=== PATIENT | female | born 2000 | race Caucasian/White ===

== ENCOUNTER 2023-05-07 06:15 | Inpatient (IN) ==
[2023-05-07] MEDS ORDERED: OXYTOCIN 30 UNITS/NSS 30 UNITS/500 ML BAG IV PRN (08:08)
[2023-05-07] MEDS ORDERED: LIDOCAINE 1% LOCAL 20 ML VIAL INFIL PRN (08:08)
[2023-05-07 08:50] LABS: Hematocrit (blood only) 34.4 % (37.0-47.0); Hemoglobin 11.3 g/dl (12.0-16.0); Mean Corpuscular Hemoglobin 27.2 pg (25.0-34.0); Mean Corpuscular Hgb Conc 32.8 g/dL (32.0-36.0); Mean Corpuscular Volume 82.7 fL (80.0-100.0); Mean Platelet Volume 12.2 fL (9.4-12.4); Platelet Count 180 K/uL (130-400); RDW Coefficient of Variation 12.9 % (11.5-14.5); Red Blood Count 4.16 M/uL (4.20-5.40); White Blood Count 11.58 K/ul (4.8-10.8)
[2023-05-07] MEDS ORDERED: fentANYL 2 MCG/ML BUPIVacaine 0.125%-NSS 100ML BAG ONE (09:08)
[2023-05-07] MEDS ORDERED: BUPIVACAINE 0.25% PF 30 ML VIAL ONE (09:08)
[2023-05-07] MEDS ORDERED: ePHEDrine sulfate 50 MG/ML AMP ONE (09:08)
[2023-05-07] MEDS ORDERED: fentaNYL citrate PF 100 MCG/2 ML VIAL ONE (09:08)
[2023-05-07] MEDS ORDERED: LIDOCAINE 2%/EPINEPHRINE 1:200,000 20 ML PF ONE (09:08)
[2023-05-07] MEDS ORDERED: SODIUM CHLORIDE 0.9% PF INJ 10 ML VIAL ONE (09:08)
[2023-05-07] MEDS: LACTATED RINGER'S 1,000 ML IV PRN ×2 (09:10→12:25)
--- NOTE | 2023-05-07 09:16 | Anesthesiology Consultation ---
Date of Service May 07, 2023 Assessment & Plan (1) Encounter for pre-operative examination: Chart Review Chart Review: Acceptable Risk for Labor Epidural History Height/Weight Height: 5 ft 3 in Weight: 68.946 kg Allergies Allergy/AdvReac Type Severity Reaction Status Date / Time No Known Allergies Allergy Verified 05/02/23 13:46 Medications Home Medications Medication Instructions Recorded Confirmed Last Taken prenat.vits,rory,[id number]-[id number]-[id number] tab PO 12/09/22 05/02/23 Unknown ondansetron HCl 4 mg tablet 4 mg PO Q8H PRN nausea and 12/28/22 05/02/23 Unknown vomiting #20 tabs RSV vac, preF A and preF B(PF) 120 0.5 ml IM ONCE #1 ea 04/17/23 05/02/23 Unknown mcg/0.5 mL IM solution (Abrysvo) Active Medications Generic Name Dose Route Start Last Admin Trade Name Freq PRN Reason Stop Dose Admin Lactated Ringer's 1,000 mls @ 125 mls/hr 05/07/23 08:08 05/07/23 09:10 Lr IV 05/09/23 08:07 999 mls/hr .Q8H PRN Administration L&D Protocol Protocol Past Medical History Medical History (Updated 05/07/23 @ 09:17 by Willie Kitchen MD) No pertinent past medical history Past Family History Family History Grandmother (Maternal) Breast cancer Grandfather (Paternal) Hypertension Myocardial infarction Father Emphysema/COPD Denies family history of Ovarian cancer Colorectal cancer Past Surgical History Surgical History S/P tonsillectomy and adenoidectomy S/P wisdom tooth extraction Social History Smoking Status: Never smoker Do You Dip or Chew Tobacco: No Hx Alcohol Use: No Hx Substance Use: No Physical Exam Vital Signs Last Vital Signs Temp 36.5 C 05/07/23 06:47 Pulse 77 05/07/23 06:26 Resp 18 05/07/23 06:47 BP 119/69 05/07/23 06:26 Testing Laboratory Results 05/07/23 08:21
[2023-05-07] MEDS ORDERED: ONDANSETRON INJ 2 MG/ML 2 ML VIAL IV PRN (09:52)
[2023-05-07] MEDS ORDERED: SODIUM CHLORIDE 0.9% PF INJ 10 ML VIAL EPI STA (09:52)
[2023-05-07] MEDS ORDERED: NALOXONE HCL 0.4 MG/1 ML VIAL/CARP IV PRN (09:52)
[2023-05-07] MEDS ORDERED: fentaNYL citrate PF 100 MCG/2 ML VIAL EPI STA (09:52)
[2023-05-07] MEDS ORDERED: LIDOCAINE 2% MPF LOCAL 5 ML VIAL EPI PRN (09:52)
[2023-05-07] MEDS ORDERED: BUPIVACAINE 0.25% PF 30 ML VIAL EPI STA (09:52)
[2023-05-07] MEDS ORDERED: NALOXONE HCL 1 MG in SODIUM CHLORIDE 0.9% 1,000 ML IV PRN (09:52)
[2023-05-07] MEDS ORDERED: fentANYL 2 MCG/ML BUPIVacaine 0.125%-NSS 100ML BAG EPI PRN (09:52)
[2023-05-07] MEDS ORDERED: ePHEDrine sulfate 50 MG/ML AMP IV PRN (09:52)
[2023-05-07] MEDS ORDERED: LIDOCAINE 2%/EPINEPHRINE 1:200,000 20 ML PF EPI STA (09:52)
[2023-05-07] MEDS ORDERED: SODIUM CHLORIDE 0.9% PF INJ 10 ML VIAL EPI PRN (09:52)
[2023-05-07] MEDS ORDERED: ROPIVACAINE 0.5% PF 5 MG/ML 20 ML VIAL EPI PRN (09:52)
[2023-05-07] MEDS ORDERED: fentaNYL citrate PF 100 MCG/2 ML VIAL EPI PRN (09:52)
[2023-05-07] MEDS ORDERED: BUPIVACAINE 0.25% PF 30 ML VIAL EPI PRN (09:52)
--- NOTE | 2023-05-07 12:57 | Delivery Summary ---
Vaginal Delivery Summary Date of Service May 07, 2023 Vaginal Delivery Summary DIAGNOSES: 1. Silver intrauterine at 38w6d gestation. 2. Spontaneous onset of labor. 3. Group B Streptococcus Neg. PROCEDURE: Spontaneous vaginal delivery without laceration. SURGEON: Antonette Edwards MD. PANTOGRAPH MACHINE OPERATOR: None. ESTIMATED BLOOD LOSS: 300 mL. COMPLICATIONS: None. PLACENTA: Spontaneous and intact with a 3-vessel cord. DISPOSITION: Stable to labor and delivery. DESCRIPTION: The patient pushed well and brought the head to in DOA position. The 's head was allowed to deliver with contraction force and no further active pushing, with the perineum protected during this time. There was no nuchal cord. The left shoulder was anterior. The shoulders and body delivered without any difficulty, and the infant was placed on the maternal abdomen. It was vigorous and moving all extremities, and making respiratory efforts. The cord was doubly clamped by the MD and then cut by the FOB. The placenta delivered spontaneously and was noted to be intact and with a 3VC. The cervix, vagina and perineum were examined and were found to be without defect requiring repair. The fundus was firm and lochia minimal immediately after delivery. MNP Vaginal Delivery Charge Vaginal Delivery Codes: 22386 global code for the antepartum, delivery, and post-
[2023-05-07] MEDS ORDERED: oxyCODONE/ACETAMINOPHEN 5mg/325mg TAB PO PRN (13:15)
[2023-05-07] MEDS ORDERED: ACETAMINOPHEN 325 MG TAB PO PRN (13:15)
[2023-05-07] MEDS ORDERED: bisacodyL 10 MG SUPP PR PRN (13:15)
[2023-05-07] MEDS ORDERED: BENZOCAINE 20% SPRY 85 APPLN/85 GM CAN EXT PRN (13:15)
[2023-05-07] MEDS ORDERED: DIPHTHERIA/TETANUS/PERTUSSIS Vaccine (Tdap, Age 7+yrs) 0.5mL SYR/VL IM ONE (13:15)
[2023-05-07] MEDS ORDERED: HYDROCORTISONE ACETATE 25 MG SUPP PR PRN (13:15)
--- NOTE | 2023-05-07 14:32 | Anesthesia Procedure Note ---
Date of Service May 07, 2023 Anesthesia Post Epidural Note Vital Signs Vital Signs: Temp Pulse Resp BP Pulse Ox 37.0 C 72 20 102/64 97 05/07/23 11:59 05/07/23 14:28 05/07/23 14:00 05/07/23 14:28 05/07/23 12:51 Notes Mental Status: alert / awake / arousable and participated in evaluation Nausea / Vomiting: adequately controlled Pain: adequately controlled Airway Patency, RR, SpO2: stable & adequate BP & HR: stable & adequate Hydration State: stable & adequate Neuraxial Anesthesia: was administered and sensory block is resolving Anesthetic Complications: no major complications apparent Epidural: Removed without complications and With tip intact
[2023-05-07] MEDS: IBUPROFEN 600 MG TAB PO PRN (20:03)
[2023-05-07] MEDS: DOCUSATE SODIUM 100 MG CAP PO SCH (20:04)
--- NOTE | 2023-05-08 05:54 | Obstetrical Progress Note ---
Date of Service May 08, 2023 Assessment & Plan (1) Encounter for care after hospital delivery: Plan -Pt doing well clinically -Vital signs reviewed and WNL -HGB reviewed -Blood type O+ -Rubella immune -Encourage ambulation -Monitor and control pain with Motrin prn -Monitor lochia -Encourage -discharge home today, instructions explained Admission and Anticipated Discharge Date Admission Date: May 07, 2023 Supervising Physician Co-Signing Physician Notes Resident Physician Supervision Note: I interviewed and examined the patient. Discussed with Dr. Timmons and agree with findings and plan as documented in the note. Any exceptions or clarifications are listed here: D/C instructions reviewed in room with patient who desires D/C home today. Documented By: Antonette Edwards MD, FACOG Subjective 22 yo post- day 1 s/p Ambulation: ambulating normally Voiding: no voiding problems Passing Gas: Yes Diet Tolerance:regular diet Lochia:: Small Feeding Type: breast-feeding Current Pain Level: Minimal Resting comfortably this AM in NAD. Denies MACDONALD, CP, SOB, N/V/D, LE pain/swelling. Review of Systems Review of Systems: All systems reviewed & are unremarkable except as noted in HPI & below Physical Exam Physical Exam: General: patient resting comfortably, NAD, non-toxic in appearance, AA&O x 4, answers questions appropriately. Skin: warm, dry, intact HEENT: NC/AT, anicteric sclera, conjunctiva without injection, moist mucus membranes. Heart: +S1/S2, regular, no m/r/g Lungs: equal air entry bilaterally, no rales/rhonchi/wheezes Abd: +BS, soft, NT/ND, uterine fundus firm at umbilicus Ext: warm, no clubbing/cyanosis or edema, Josefina's neg. Neuro: nonfocal, patient AA&O x 4, speech intact, no facial droop, moving all extremities on command. Results & Data Vital Signs (Past 12 Hours) Vital Signs Temp Pulse Resp BP Pulse Ox O2 Del Method 05/08/23 03:20 36.8 C 70 20 103/63 94 Room Air 05/07/23 23:15 36.7 C 75 20 94/60 L 94 Room Air 05/07/23 19:57 36.6 C 83 18 112/67 Resident Activity Tracking Resident Involvement: Resident Care Provided Care Provided: OB Delivery
[2023-05-08 06:41] LABS: Hematocrit (blood only) 34.6 % (37.0-47.0); Mean Corpuscular Hemoglobin 26.9 pg (25.0-34.0); Mean Corpuscular Hgb Conc 31.8 g/dL (32.0-36.0); Mean Corpuscular Volume 84.6 fL (80.0-100.0); Mean Platelet Volume 12.4 fL (9.4-12.4); Platelet Count 175 K/uL (130-400); RDW Coefficient of Variation 13.1 % (11.5-14.5); RDW Standard Deviation 39.8 fL (36.4-46.3); Red Blood Count 4.09 M/uL (4.20-5.40); White Blood Count 14.66 K/ul (4.8-10.8)
[2023-05-08] MEDS ORDERED: PRENATAL VITAMIN 1 TAB PO SCH (08:00)
[2023-05-08] MEDS: IBUPROFEN 600 MG TAB PO PRN (08:12)
[2023-05-08] MEDS: DOCUSATE SODIUM 100 MG CAP PO SCH (08:12)
== END 2023-05-08 14:45 | disposition home or self-care (01) | DRG 807 ==
LOC: OPB 06:15 → 4S1 06:17 → 4E2 15:58